=== PATIENT | male | born 1950 | race Caucasian/White ===

== ENCOUNTER 2017-06-22 20:38 | Emergency (ER) | payer MEDICARE, BC ==
[2017-06-22 23:54] LABS: Hematocrit 39 % (42-52); Mean Corpuscular HGB Conc 34 g/dl (31-36); Mean Corpuscular Hemoglobin 29 pg (27-31); Mean Corpuscular Volume 86 fL (80-94); Mean Platelet Volume 9 um3 (7.4-10.4); Red Blood Count 4.52 10^6/ul (4.0-5.4); Red Cell Distribution Width 14 % (10.5-15)
[2017-06-23 00:10] LABS: Albumin 4.2 g/dL (3.2-5.2); BUN/Creatinine Ratio 22.5 (8-20); Calcium 9.4 mg/dL (8.6-10.3); EGFR African American 125.2 (>60); EGFR Non-African American 97.3 (>60); Globulin 3.2 g/dL (2-4); Potassium 4.2 mmol/L (3.5-5.0); Total Bilirubin 0.5 mg/dL (0.2-1.0); Total Protein 7.4 g/dL (6.4-8.9)
--- NOTE | 2017-06-23 00:18 | ED ---
Leti Wetzel Alfonso, scribed for Leonid Pineda MD on 06/22/17 at 2320 . Shortness of Breath - HPI Summary HPI Summary: This patient is a 66 year old M presenting to [facility] accompanied by woman with a chief complaint of SOB at 1845 today. The SOB began in the shower. The CC has since resolved. Pt rates the pain 0/10 in severity. Symptoms aggravated by nothing and alleviated by spontaneous resolution. Pt reports wheezing, racing palpitations, high blood pressure (168/91 at home), chest tightness, and headache. Pt took ASA TILE TRIMMER. PSHx of endarterectomy on 06/15/17. - History of Current Complaint Chief Complaint: EDGeneral Time Seen by Provider: 06/22/17 23:08 Hx Obtained From: Patient Onset/Duration: Sudden Onset, Lasting Hours - 1845 today, Resolved Timing: Constant Current Severity: Moderate Aggrevating Factors: Nothing Alleviating Factors: Spontaneous Resolution Associated Signs & Symptoms: Wheezing, Chest Pain Unrelated to Cough - Tightness - Allergy/Home Medications Allergies/Adverse Reactions: Allergies Allergy/AdvReac Type Severity Reaction Status Date / Time No Known Allergies Allergy Verified 06/22/17 20:58 PMH/Surg Hx/FS Hx/Imm Hx Endocrine/Hematology History: Reports: Hx Diabetes Cardiovascular History: Reports: Hx Coronary Artery Disease - 02/2015 STENT, Hx Hypertension - ON DAILY MEDS Denies: Hx Pacemaker/ICD Comment Only: Other Cardiovascular Problems/Disorders - Dr Yan GI History: Reports: Hx Cirrhosis - STATES MANY YEARS AGO, , Hx Gastroesophageal Reflux Disease - ON DAILY MEDS, Hx Jaundice - History: Reports: Hx Kidney Stones - , PASSED Denies: Hx Renal Disease Musculoskeletal History: Reports: Hx Arthritis - GENERALIZED, DAILY PAIN, Other Musculoskeletal History - GOUT? Sensory History: Reports: Hx Contacts or Glasses - GLASSES Denies: Hx Hearing Aid Opthamlomology History: Reports: Hx Contacts or Glasses - GLASSES Psychiatric History: Reports: Hx Anxiety, Hx Depression Denies: Hx Panic Disorder - Surgical History Surgery Procedure, Year, and Place: 2006 LEFT knee [facility]. 2002 & 2010 LEFT SHOULDER [facility]. 2002 RT SHOULDER [facility]. 02/2015 RT CORONARY ARTERY STENT PLACED 03/06/15 OK TO SCAN IMMEDIATELY AFTER PLACEMENT TO 3T PER MR SAFETY(TAJ BY [employer]), [facility]. 1973 & 2004 LEFT ACHILLES TENDON [facility] [facility]. 2004 LEFT HAND [facility]. 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 Substance Use Type: Reports: None Smoking Status (MU): Former Smoker Type: Cigarettes Amount Used/How Often: 1 1/2-2 PPD 30+ YRS Have You Smoked in the Last Year: No Review of Systems Positive: Palpitations, Chest Pain - Tightness, Other - Positive "high blood pressure (168/91 at home) Positive: Shortness Of Breath, Other - Positive wheezing Positive: Headache All Other Systems Reviewed And Are Negative: Yes Physical Exam Triage Information Reviewed: Yes Vital Signs On Initial Exam: Initial Vitals Temp Pulse Resp BP Pulse Ox 97.0 F 84 16 116/80 97 06/22/17 20:50 06/22/17 20:50 06/22/17 20:50 06/22/17 20:50 06/22/17 20:50 Vital Signs Reviewed: Yes Appearance: Positive: Well-Appearing, No Pain Distress Skin: Positive: Warm Head/Face: Positive: Normal Head/Face Inspection Eyes: Positive: MARISSA ENT: Positive: Hearing grossly normal Neck: Positive: Supple Respiratory/Lung Sounds: Positive: Clear to Auscultation, Breath Sounds Present Cardiovascular: Positive: RRR Abdomen Description: Positive: Nontender, No Organomegaly, Soft Bowel Sounds: Positive: Present Musculoskeletal: Positive: Strength/ROM Intact Neurological: Positive: Alert, Oriented to Person Place, Time Psychiatric: Positive: Affect/Mood Appropriate Diagnostics - Vital Signs Vital Signs Temp Pulse Resp BP Pulse Ox 06/22/17 21:45 97.4 F 69 108/66 96 06/22/17 20:50 97.0 F 84 16 116/80 97 - Laboratory Lab Results: Lab Results 06/22/17 06/22/17 06/22/17 Range/Units 23:40 23:40 23:40 WBC 8.0 (3.5-10.8) 10^3/ul RBC 4.52 (4.0-5.4) 10^6/ul Hgb 13.0 L (14.0-18.0) g/dl Hct 39 L (42-52) % MCV 86 (80-94) fL MCH 29 (27-31) pg MCHC 34 (31-36) g/dl RDW 14 (10.5-15) % Plt Count 187 (150-450) 10^3/ul MPV 9 (7.4-10.4) um3 Neut % (Auto) 69.6 (38-83) % Lymph % (Auto) 21.2 L (25-47) % [place] % (Auto) 5.9 (1-9) % Eos % (Auto) 2.8 (0-6) % Baso % (Auto) 0.5 (0-2) % Absolute Neuts (auto) 5.6 (1.5-7.7) 10^3/ul Absolute Lymphs (auto) 1.7 (1.0-4.8) 10^3/ul Absolute Monos (auto) 0.5 (0-0.8) 10^3/ul Absolute Eos (auto) 0.2 (0-0.6) 10^3/ul Absolute Basos (auto) 0 (0-0.2) 10^3/ul Absolute Nucleated RBC 0 10^3/ul Nucleated RBC % 0 D-Dimer, Quantitative < 200 (Less Than 230) ng/mL Sodium 133 (133-145) mmol/L Potassium 4.2 (3.5-5.0) mmol/L Chloride 100 L (101-111) mmol/L Carbon Dioxide 27 (22-32) mmol/L Anion Gap 6 (2-11) mmol/L BUN 18 (6-24) mg/dL Creatinine 0.80 (0.67-1.17) mg/dL Est GFR ( Amer) 125.2 (>60) Est GFR (Non-Af Amer) 97.3 (>60) BUN/Creatinine Ratio 22.5 H (8-20) Glucose 182 H (70-100) mg/dL Calcium 9.4 (8.6-10.3) mg/dL Magnesium 2.0 (1.9-2.7) mg/dL Total Bilirubin 0.50 (0.2-1.0) mg/dL AST 19 (13-39) U/L ALT 41 (7-52) U/L Alkaline Phosphatase 91 (34-104) U/L Troponin I 0.00 (<0.04) ng/mL Total Protein 7.4 (6.4-8.9) g/dL Albumin 4.2 (3.2-5.2) g/dL Globulin 3.2 (2-4) g/dL Albumin/Globulin Ratio 1.3 (1-3) TSH Pending Result Diagrams: 06/22/17 23:40 06/22/17 23:40 Lab Statement: Any lab studies that have been ordered have been reviewed, and results considered in the medical decision making process. - EKG 2100 Cardiac Rate: NL - BPM 71 EKG Rhythm: Sinus Rhythm Re-Evaluation - Re-Evaluation First Eval Change: Improved - results d/w pt Course/Dx - Course Assessment/Plan: 66 year old M presenting to [facility] accompanied by woman with a chief complaint of SOB at 1845 today. Symptoms aggravated by nothing and alleviated by spontaneous resolution. Pt reports wheezing, racing palpitations, high blood pressure (168/91 at home), chest tightness, and headache. Pt took ASA TILE TRIMMER. PSHx of endarterectomy on 06/15/17. An EKG reveals NSR. Patient will be discharged with follow up from PCP. Pt is agreeable with this plan. - Diagnoses Provider Diagnoses: HTN (hypertension) Discharge - Discharge Plan Condition: Stable Disposition: HOME Patient Education Materials: Palpitations (ED) Referrals: Deion Rausch MD [Primary Care Provider] - 3 Days The documentation as recorded by the Leti caceres Alfonso accurately reflects the service I personally performed and the decisions made by me, Leonid Pineda MD.
[2017-06-23 00:39] LABS: TSH (Thyroid Stimulating Horm) 1.02 mcIU/mL (0.34-5.60)
[2017-06-23 01:20] VITALS: BP 143/64
== END 2017-06-23 01:20 | disposition home or self-care (01) ==
LOC: ED 20:38
DX: I10 Essential (primary) hypertension (principal); R07.9 Chest pain, unspecified; R05 Cough; R06.2 Wheezing; R00.2 Palpitations; R51 Headache; R06.02 Shortness of breath; Z87.891 Personal history of nicotine dependence
CPT/HCPCS: 36415; 80053; 83605; 83735; 84443; 84484; 85025; 85379; 93005; 99283

== ENCOUNTER → 2017-10-27 07:17 | Day surgery (SDC) | payer MEDICARE, BC ==
[~2017-10-27 07:17] MED LIST: Flumazenil* 0.1 MG/ML 5 ML MDV ONE; Heparin 2 UNITS/ML IVPREMIX* 1,000 ML IV ONE; Heparin 2 UNITS/ML IVPREMIX* 2,000 ML IV ONE; Heparin(*) 1000 UNIT/ML 10 ML VIAL CATH LAB IV ONE; Iodixanol* (CONTRAST) 320 MG/ML 100 ML SDV ONE; Iohexol 350 (CONTRAST) 200 ML MDV IV ONE; LORazepam TAB(*) 1 MG ONE; Lidocaine 1% INJ* 10 MG/ML 30 ML SDV ONE; Midazolam* 1 MG/ML 5 ML VIAL (5 MG) ONE; Naloxone* 0.4 MG/ML 1 ML VIAL ONE; VERAPAMIL 2.5 MG/ML 4 ML VIAL ONE; ceFAZolin 1 GM* X ONE DOSE IVPB; fentaNYL* 50 MCG/ML 5 ML VIAL (250 MCG VIAL) ONE; nitroGLYCERIN DRIP* 25,000 MCG/250 ML BTL ONE
[2017-10-27 07:55] LABS: Hematocrit 37 % (42-52); Hemoglobin 12.3 g/dl (14.0-18.0); Mean Corpuscular HGB Conc 33 g/dl (31-36); Mean Corpuscular Hemoglobin 27 pg (27-31); Mean Corpuscular Volume 82 fL (80-94); Mean Platelet Volume 9 um3 (7.4-10.4); Red Blood Count 4.51 10^6/ul (4.0-5.4); Red Cell Distribution Width 15 % (10.5-15); White Blood Count 5.9 10^3/ul (3.5-10.8)
[2017-10-27 08:06] LABS: Calcium 9.7 mg/dL (8.6-10.3); EGFR African American 110.7 (>60); EGFR Non-African American 86.1 (>60); Potassium 3.9 mmol/L (3.5-5.0)
[2017-10-27 11:37] VITALS: BP 130/95
--- NOTE | 2017-10-27 13:41 | PN ---
Progress Note - Progress Note Date of Service: 10/27/17 SOAP: Subjective: No pain different than his usual lower extremity pain. No nausea. Ate lunch. Wants to go home. Objective: 59, 129/80, 95% (RA), 13 respiration NAD, AAO x 3 Right DPA access site is soft, non-tender, Small amount of dried blood, stable since sheath removal. Right foot neuromuscular intact grossly Assessment: 66 YOM s/p right dorsalis pedis arteriotomy access right leg arteriogram and attempted revascularization of occluded proximal right SFA (unsuccessful). Plan: 1. Outcome and plan to refer to Dr. Barbour was discussed with Benito and his Eliane. They intend to see Dr. Barbour to discuss surgical options. 2. Case discussed with Dr. Barbour over the telephone. 3. D/C Plavix.
--- NOTE | 2017-10-27 14:39 | RAD ---
CPT II Codes: 6045F Procedure(s) performed: 1. Diagnostic right lower extremity arteriogram from a right dorsalis pedis arteriotomy. 2. Attempted revascularization of the occluded proximal right superficial femoral artery without success. Date of service: October 2017 Indication for procedure: Claudication and rest pain Comparison: Previously attempted angiography dated September 22, 2017 and CTA aorta with runoff dated April 27, 2017 Contrast: 10 mL Visipaque 320 Fluoroscopy Time: 21.4 minutes Vessels Accessed: Percutaneous access was obtained with ultrasound guidance in the right dorsalis pedis artery in the retrograde direction towards the heart. Catheter arteriography, with the catheter tip located within the lumen of the following arteries, was performed at the right dorsalis pedis artery and right superficial femoral artery. Anesthesia: Conscious sedation with IV Fentanyl and Versed as well as local 1% lidocaine injected locally at the arteriotomy site. Conscious sedation time: Timeout: 25 hours Case end: 1048 hours Total conscious sedation time: 1 hour and 23 minutes Additional medications: * IV heparin 6000 Units to achieve a goal ACT of 250-300. * The patient received 1 mg of p.o. Ativan prior to the onset of the procedure. * The "radial cocktail" was injected into the side arm of the arteriotomy sheath including heparin 3000 units, verapamil 3 mg and nitroglycerin 300 mcg PROCEDURE NOTE AND INTRAPROCEDURAL IMAGING FINDINGS: Immediately prior to the procedure the patient signed consent after thoroughly discussing all risks, benefits and alternative therapies. The patient was positioned on the fluoroscopy table in the supine position and the bilateral groins and right ankle were prepped and the patient was draped in standard sterile fashion. The right dorsalis pedis artery was located and visualize with ultrasound. Patency was confirmed with color flow analysis. Utilizing sonographic guidance the right dorsalis pedis artery was cannulated with a 21-gauge needle and a microwire was smoothly inserted under sonographic control into the lower anterior tibial artery. Images were saved. No buckling of the wire was visualized to indicate dissection. With the wire securing percutaneous arterial access, the needle was removed and a 4-Sudanese Terumo Glidesheath was advanced under fluoroscopic control into the right dorsalis pedis artery in the retrograde direction securing access. Under fluoroscopic visualization a microwire was advanced to the proximal right superficial femoral artery encountering the patient's calcified occlusion of the proximal right superficial femoral artery. Over the wire a catheter was advanced to the occlusion. The wire was removed and arteriography was performed to best characterize the occluded artery. This arteriogram was necessary to determine the location of a distal "cap" to try to access for revascularization. Multiple revascularization attempts were unsuccessful utilizing several microwires as well as standard 0.035 inch wires and hydrophilic wires. A dissection plane was created but safe reentry into the right common femoral artery could not be achieved. After multiple attempts over the course of an hour, and knowing that antegrade revascularization had failed earlier, the revascularization was aborted. At the conclusion of the case the ACT measured 150, the 4-Sudanese access sheath was removed and gentle manual pressure was held for 15 minutes. There were no signs of bleeding at the percutaneous arterial access site and the site was dressed with sterile gauze and Tegaderm. The patient tolerated the procedure well and was transferred to angiography holding bay for standard post pedal access procedural observation. SUMMARY OF PROCEDURE, IMAGING FINDINGS AND INTERVENTIONS PERFORMED: 1. Diagnostic studies performed: * Arterial access was obtained at the right dorsalis pedis artery in the retrograde direction (i.e. towards the heart) with ultrasound guidance. A sonographic image was recorded. * Diagnostic catheter angiography (necessary to attempt to revascularize the occluded right superficial femoral artery from a retrograde approach) was performed with the catheter tip in the right dorsalis pedis artery and right superficial femoral artery. * Catheter arteriography was performed of the right superficial femoral artery. 2. Interpretation of diagnostic studies performed: * Coarsely calcified occlusion of the proximal right superficial femoral artery. * Attempts to revascularize the occluded right superficial femoral artery from a retrograde pedal access approach were unsuccessful. 3. Surgical interventions performed: * Attempts to revascularize the occluded right superficial femoral artery from a retrograde pedal access approach were unsuccessful. Plan: 1. The patient was instructed to stop Plavix 75 mg p.o. daily. 2. Shortly after the procedure this case was discussed with Dr. Barbour with him the patient will see in consultation regarding surgical bypass.
== END | disposition home or self-care (01) ==
LOC: CHICATH 07:17
PROVIDERS: ATTEND Radiology Diagnostic Radiology
DX: I70.221 Atherosclerosis of native arteries of extremities with rest pain, right leg (principal); I10 Essential (primary) hypertension; I25.10 Atherosclerotic heart disease of native coronary artery without angina pectoris; I25.2 Old myocardial infarction; K21.9 Gastro-esophageal reflux disease without esophagitis; Z95.5 Presence of coronary angioplasty implant and graft; E11.9 Type 2 diabetes mellitus without complications; Z79.84 Long term (current) use of oral hypoglycemic drugs; E78.5 Hyperlipidemia, unspecified; I25.9 Chronic ischemic heart disease, unspecified; I42.5 Other restrictive cardiomyopathy; N28.9 Disorder of kidney and ureter, unspecified; F41.8 Other specified anxiety disorders; Z79.899 Other long term (current) drug therapy
CPT/HCPCS: 36415; 76937; 80048; 85025; 85610; 85730; 99156; 99157; A9270-GY; C1769; C1887; J0690; J1644; J2250; J2310; J3010

== ENCOUNTER 2018-04-24 16:51 | Emergency (ER) | payer MEDICARE, BC ==
--- OUTSIDE RECORDS SUMMARY | 2018-04-24 17:14 | XMS REPORT ---
:1950 External Reference #:[id number] Author Organization [employer] Address [address] [address] Phone [phone] Care Team Providers Name Role Phone Deion Rausch III, MD Primary Care Physician Unavailable Payers Type Date Identification Numbers Payment Provider Subscriber Medicare Primary Policy Number: [id number] Medicare [place]ito [place] PayID: [id number] [address] [place] [address] Medigap Part B Effective: 2017 Policy Number: JOSE Thong [place] [id number] PayID: [id number] [address] [address] [place] [address] Medigap Part B Effective: 2011 Policy Number: BS Thong [place] [id number] Expires: 2017 PayID: [id number] [address] [address] [place] [address] Workers Compensation Onset: 2011 Policy Number: State Insurance [place]ito [place] [id number] Fund Group Number: [id number] [address] [address] PayID: [place] [address] Advance Directives Type Date Description Status Comment Other Directive 10/20/2017 Health Care Proxy Current and Verified Problems Date Description Provider Status Onset: 03/25/2015 Chronic ischemic heart disease Shade Yan M.D., FAC, Active [facility] Onset: 03/25/2015 Restrictive cardiomyopathy Shade Yan M.D., FACC, Active secondary to granulomas [facility] Onset: 03/25/2015 Benign essential hypertension Shade Yan M.D., [facility], Active [facility] Onset: 03/25/2015 Hyperlipidemia Shade Yan M.D., [facility], Active [facility] Onset: 03/25/2015 Impaired renal function disorder Shade Yan M.D., [facility], Active [facility] Onset: 06/18/2015 Localized, primary osteoarthritis Kanwal Ceja M.D. Active of the pelvic region and thigh Onset: 06/18/2015 Osteoarthritis of knee Kanwal Ceja M.D. Active Onset: 06/25/2015 Gouty arthropathy Liseth Willoughby M.D. Active Onset: 06/25/2015 Lesion of ulnar nerve Liseth Willoughby M.D. Active Onset: 07/15/2015 Localized, primary osteoarthritis Kanwal Ceja M.D. Active of the shoulder region Onset: 07/15/2015 Disorder of bursa of shoulder Kanwal Ceja M.D. Active region Onset: 09/14/2015 Localized, primary osteoarthritis Kanwal Ceja M.D. 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 Active Onset: 08/30/2017 Atherosclerosis of arteries of [place] Gonzalez M.D. 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 Stopped with [facility] admission February 2015 Smoking Patient is a former smoker quit age 54; max 1-2 ppd. Started age 24 Recreational Drug Use Denies Drug Use Daily Caffeine Consumes on average 1 cup of regular coffee per day Exercise Type/Frequency Exercises rarely pt has pain in legs and ball of foot that prevent exercise Allergies, Adverse Reactions, Alerts Date Description Reaction Status Severity Comments 03/20/2015 NKDA active Medications Medication Date Status Form Strength Qnty SIG Indications Ordering Provider Tizanidine HCL 01/16 Active Capsules 4mg 1 tablet 5 Deion E. /2017 times daily Viraj Rausch Betamethasone 12/01 Active Cream 0.05% 90gm apply thin R21 Jose Dipropionate layer to CELI Franco affected areas twice daily. Clopidogrel 08/30 Active Tablets 75mg 180ta 75 mg by I70.221 Bal[place]ero Ordaz Bisulfate /2016 bs mouth daily, Viraj Gonzalez Vitamin B1 07/19 Active Tablets 100mg 90tab 1 by mouth Graham s every day Viraj Bailey Allopurinol 03/13 Active Tablets 100mg 90tab 1 by mouth Deion Ordonez /2016 s every day Viraj Rausch Colcrys 03/02 Active Tablets 0.6mg 6tabs 2 by mouth M79.644 Deion Ordonez with acute lalita Rausch flareViraj then 1 tab 1 hour later Pantoprazole 09/30 Active Tablets 20mg 90tab 1 by mouth Deion Ordonez Sodium DR [place] every day Virja Rausch Escitalopram 09/29 Active Tablets 10mg 90tab 1 by mouth Deion Ordonez Oxalate s every day Viraj Rausch Freestyle 28G 05/24 Active 100un Use as Deion Ordonez Lancets its Directed Miracle, Daily And as M.D. Needed Lisinopril 11/04 Active Tablets 5mg 90tab 1 by mouth I10 Deion Ordonez /2014 s every day Viraj Rausch Percocet 10/14 Active Tablets 5-325mg 56tab 1-2 by mouth Leonid s every 6 Jc, ADVERTISING ACCOUNT MANAGER hours as needed pain Cialis 08/17 Active Tablets 20mg 18tab take one Graham s tablet by Lynn mouth once M.DTc daily as needed for e.d. Nitrostat 06/18 Active Tablets 0.4mg 25tab place 1 Deion Tc Sub s tablet under Miracle, the tongue M.D. every 5 minutes for up to 3 doses Metoprolol 06/18 Active Tablets 25mg 45tab / by mouth Deion Ordonez Succinate ER 24HR s at bedtime Viraj Rausch Ra Aspirin Ec 04/10 Active Tablets 81mg 90tab take [address] s tablet once ravi Rausch M.Hola Freestyle 04/06 Active 1unit use as E11.9 Deion Ordonez [place] Lite s directed Miracle, Meter M.DTc Freestyle Lite 04/06 Active Strip 100un Use as E11.9 Deion Ordonez Test its Directed Miracle, Every Day M.D. And as Needed Freestyle 04/03 Active Misc 100un use once E11.9 Deion Ordonez Lanc its daily and as Miracle, needed M.DTc Gabapentin 03/20 Active Capsules 400mg 450ca take 1 Tc ps capsule by jelly Rausch up to M.D. 5 times a day Lipitor Active Tablets 20mg 90tab one tab by Shade /0000 s mouth every [place], night at M.D., bedtime ARIEL LOVE Folic Acid Active Tablets 1mg 90tab 1 by mouth Deion E. / s every day Viraj Rausch Multi-Vitamin Active Tablets 90tab 1 by mouth Deion ETc Daily /0000 s daily Viraj Rausch Probiotic Active Capsules 1 by mouth Unknown /0000 every day Tramadol HCL Active Tablets 50mg 1 tablet by Unknown /0000 mouth every bid as needed pain Metformin HCL 07/19 Hx Tablets 500mg 120ta 1 by mouth E11.9 Deion Ordonez bs twice a day Nadia Rausch M.D. 11/28 Cilostazol 06/01 Hx Tablets 100mg 30tab 1 by mouth Jose s every day CELI Franco - 04/20 Tizanidine HCL 04/18 Hx Capsules 6mg one by mouth Deion Ordonez 4 times a Miracle - day(pt takes M.DTc 01/16 4 mg 4 times /2018 daily) Prednisone 03/02 Hx Tablets 20mg 10tab 2 by mouth M79.644 Deion Ordonez s every day Miracle, - for 3 days, M.D. 06/06 then day for 4 days Clopidogrel 11/04 Hx Tablets 75mg 90tab 1 by mouth Shade Bright s every day Nadia Yan M.D., 06/01 [facility] Valium 10/14 Hx Tablets 5mg 21tab 1 by mouth Leonid s three times Jc, ADVERTISING ACCOUNT MANAGER - a day 05/03 [place] 09/14 Hx Tablets 5-325mg 30tab one tab by Liseth s mouth every Willoughby, - 4-6 hours as M.D. 10/04 needed pain [place] 08/27 Hx Tablets 5-325mg 30tab 1-2 by mouth Liseth s q4-6 hour as Willoughby, - needed pain M.D. 09/16 Tizanidine HCL 06/19 Hx Tablets 4mg 60tab 1 tab by Deion Ordonez /2014 s mouth four Miracle, - times a day M.D. 04/18 as needed Tramadol HCL 05/12 Hx Tablets 50mg 60tab 1/2 tablets Deion Ordonez s every 6 Miracle, - hours as M.D. 04/20 needed MDD Glyburide 03/25 Hx Tablets 1.25mg 180ta not taking 588.9 Nadia Dougherty M.D., 11/03 [facility] Quinapril-Hydroc 03/20 Hx Tablets 20mg/12.5 1/2 by Deion Ordonez hlorothiazide mg mouth every Miracle, - day M.D. 04/02 Zanaflex 03/20 Hx Capsules 4mg 60cap 1 tab by Deion Ordonez s mouth four Miracle, - times a day M.D. 06/19 as needed Thiamine HCL 03/20 Hx Tablets 100mg 90tab one po qd Graham tarsha Bailey, - M.D. 08/29 Aspirin 00 Hx Tablets 81mg 1 by mouth Unknown /0000 every day - 04/10 Spironolactone 00/00 Hx Tablets 25mg 1 by mouth Unknown /0000 every day - 03/20 Glucovance 00/00 Hx Tablets 1.25-250m 1 by mouth Unknown /0000 g twice a day - 04/02 Accuretic 00/ Hx take 1 tab Unknown /0000 daily - 03/20 Cialis 00/ Hx Tablets 20mg 1 daily and Unknown /0000 as needed - 04/14 Tramadol HCL Hx Tablets 50mg 1- tablets Unknown /0000 every 6 - hours as 05/12 Furosemide Hx Tablets 20mg 1 tab by Unknown /0000 mouth every - day 04/05 Thiamine Hx Capsules 50mg 2 by mouth Unknown /0000 every day - 03/20 Nitroglycerin Hx Solution 5mg/ml as directed Unknown / - 03/24 Lactulose Hx Solution 10GM/15ML 473un start 15 Deion E. /0000 its milliliters Nadia Rausch by jelly Cali 06/02 qday. march gradually increase by 15 ml/day once per week to a max of 30 milliliters twice a day Oxycodone-Acetam Hx Tablets 5-325mg 30tab 1 po 1-4 Leonid inophen /0000 s times a day CELI Jc - as needed 10/04 Indomethacin 00/ Hx Capsules 50mg 1 by mouth Unknown /0000 three times - a day 04/14 Indomethacin 00/00 Hx Capsules 50mg 1 by mouth Unknown /0000 tid prn - gout(patient 06/17 finished a treatment) Cialis 00/00 Hx As needed Unknown /0000 - 09/16 Plavix 00/00 Hx Tablets 75mg 30tab 1 by mouth Deion ETc /0000 s every day Nadia Rausch M.D. 11/04 Protonix 00/00 Hx Tablets 40mg 30tab 1 by mouth Deion ETc /0000 DR s every day Nadia Rausch M.D. 12/28 Bupropion HCL ER 00/00 Hx Tablets 150mg 60tab 1 by mouth Deion Ordonez (SR) /0000 ER 12HR s twice a day Nadia Rausch M.D. 09/29 Pantoprazole 00/00 Hx Solution 40mg 1 by mouth Deion Anderson /0000 Rec every day Nadia Rausch M.D. 09/30 Aspirin Adult Hx Tablets 81mg 1 by mouth Unknown Low Dose /0000 DR every day - 07/19 Cephalexin Hx Capsules 500mg 1 by mouth Unknown /0000 four times a - day for 10 Medications Administered in Office Medication Date Status Form Strength Qnty SIG Indications Ordering Provider Depomedrol Administered Injection Kanwal 80MG Mercedes Ceja M.D. Influenza Administered Injection Unknown Virus Vaccine 015 Depomedrol Administered Injection Kanwal 80MG 015 Viraj Ceja Depomedrol Administered Injection Kanwal 80MG 015 Viraj Ceja Influenza Administered Injection Unknown Virus Vaccine 014 Immunizations CPT Code Status Date Vaccine Lot # [id number] Given 08/10/2017 Influenza Virus Vaccine, Quadrivalent, Split, 572kt Preservative Free [id number] Given 07/15/2016 Influenza Virus Vaccine, Quadrivalent, Split, Preservative Free [id number] Given 08/18/2015 Flu Vaccine NOS [id number] Given 08/18/2015 Pneumococcal Conjugate Vaccine 13 Valent For Intramuscular Use 95395 Given 06/02/2015 Pneumonia Vaccine [id number] Given 08/20/2014 Zoster (Zostavax) 07837 Given 11/20/2008 Tetanus And Diptheria (Td) For Adult Use Preservative Free Vital Signs Date Vital Result Comment 04/20/2018 Height 70 inches 5'10" Weight 228.00 lb Heart Rate 87 /min BP Systolic Sitting 142 mmHg BP Diastolic Sitting 68 mmHg Pain Level 6 O2 % BldC Oximetry 95 % BMI (Body Mass Index) 32.7 kg/m2 01/18/2018 Weight 220.00 lb Heart Rate 56 /min BP Systolic Sitting 114 mmHg BP Diastolic Sitting 68 mmHg O2 % BldC Oximetry 99 % 01/16/2018 Height 70 inches 5'10" Weight 219.00 lb w/shoes Heart Rate 68 /min BP Systolic Sitting 112 mmHg lue large cuff BP Diastolic Sitting 68 mmHg lue large cuff BP Systolic Standing 112 mmHg lue large cuff BP Diastolic Standing 68 mmHg lue large cuff Respiratory Rate 18 /min BMI (Body Mass Index) 31.4 kg/m2 Ejection Fraction 55-60% echo 04/30/15 12/01/2017 Height 70 inches 5'10" Weight 216.50 lb Heart Rate 63 /min BP Systolic 110 mmHg BP Diastolic 62 mmHg Body Temperature 97.6 F O2 % BldC Oximetry 97 % BMI (Body Mass Index) 31.1 kg/m2 11/30/2017 Height 70.5 inches 5'10.50" Weight 212.00 lb w/shoes Heart Rate 78 /min BP Systolic Sitting 130 mmHg lue reg cuff BP Diastolic Sitting 78 mmHg lue reg cuff BP Systolic Standing 122 mmHg lue reg cuff BP Diastolic Standing 72 mmHg lue reg cuff BP Systolic Lying Down 128 mmHg lue reg cuff, after home machine. BP Diastolic Lying Down 82 mmHg lue reg cuff, after home machine. BP Systolic Recheck 125 mmHg HR 66 with home machine BP Diastolic Recheck 75 mmHg HR 66 with home machine Respiratory Rate 18 /min BMI (Body Mass Index) 30.0 kg/m2 Ejection Fraction 55-60% echo 04/30/15 10/20/2017 Height 70.5 inches 5'10.50" Weight 218.00 lb Heart Rate 57 /min BP Systolic Sitting 95 mmHg BP Diastolic Sitting 74 mmHg Body Temperature 96.7 F O2 % BldC Oximetry 98 % BMI (Body Mass Index) 30.8 kg/m2 08/30/2017 Height 70.5 inches Weight 219.00 lb w/shoes Heart Rate 64 /min BP Systolic Sitting 120 mmHg rue reg cuff BP Diastolic Sitting 60 mmHg rue reg cuff Respiratory Rate 18 /min BMI (Body Mass Index) 31.0 kg/m2 Ejection Fraction 55-60% echo 04/30/15 08/10/2017 Weight 220.00 lb Heart Rate 73 /min BP Systolic Sitting 120 mmHg BP Diastolic Sitting 64 mmHg Body Temperature 97.0 F Pain Level 4 O2 % BldC Oximetry 97 % 07/19/2017 Weight 224.38 lb Heart Rate 82 /min BP Systolic Sitting 160 mmHg BP Diastolic Sitting 80 mmHg Body Temperature 98.5 F O2 % BldC Oximetry 95 % 06/01/2017 Weight 228.00 lb Heart Rate 66 /min BP Systolic Sitting 128 mmHg BP Diastolic Sitting 66 mmHg Body Temperature 97.1 F O2 % BldC Oximetry 93 % 05/03/2017 Height 70.5 inches 5'10.50" Weight 227.00 lb w/ shoes Heart Rate 60 /min reg BP Systolic Sitting 130 mmHg Rue, reg cuff BP Diastolic Sitting 80 mmHg Rue, reg cuff BP Systolic Standing 118 mmHg BP Diastolic Standing 80 mmHg Respiratory Rate 16 /min BMI (Body Mass Index) 32.1 kg/m2 Ejection Fraction 55-60% as of 04/2015 echo 04/18/2017 Weight 224.00 lb Heart Rate 64 /min BP Systolic Sitting 132 mmHg BP Diastolic Sitting 84 mmHg Respiratory Rate 15 /min Body Temperature 98.0 F O2 % BldC Oximetry 98 % 03/02/2017 Weight 229.00 lb Heart Rate 52 /min BP Systolic Sitting 128 mmHg BP Diastolic Sitting 82 mmHg Respiratory Rate 14 /min Body Temperature 98.4 F O2 % BldC Oximetry 98 % 10/17/2016 Height 70 inches 5'10" Weight 227.38 lb Heart Rate 53 /min BP Systolic 120 mmHg 117/78 pt's machine BP Diastolic 70 mmHg 117/78 pt's machine Body Temperature 97.7 F O2 % BldC Oximetry 95 % BMI (Body Mass Index) 32.6 kg/m2 09/29/2016 Height 70 inches 5'10" Weight 221.00 lb Heart Rate 65 /min BP Systolic Sitting 186 mmHg BP Diastolic Sitting 86 mmHg Body Temperature 98.6 F O2 % BldC Oximetry 97 % BMI (Body Mass Index) 31.7 kg/m2 05/04/2016 Height 70 inches 5'10" Weight 215.00 lb Heart Rate 64 /min 68 BP Systolic Sitting 128 mmHg right arm, reg cuff BP Diastolic Sitting 72 mmHg right arm, reg cuff BP Systolic Standing 112 mmHg right arm, reg cuff BP Diastolic Standing 70 mmHg right arm, reg cuff Respiratory Rate 16 /min BMI (Body Mass Index) 30.8 kg/m2 Ejection Fraction 55-60% 04/30/15 03/28/2016 Weight 215.00 lb Heart Rate 72 /min BP Systolic Sitting 118 mmHg BP Diastolic Sitting 74 mmHg Body Temperature 98.4 F O2 % BldC Oximetry 97 % 12/28/2015 Weight 212.00 lb Heart Rate 66 /min BP Systolic Sitting 142 mmHg BP Diastolic Sitting 70 mmHg O2 % BldC Oximetry 98 % 11/25/2015 Height 70 inches 5'10" Weight 216.00 lb Pain Level 8 BMI (Body Mass Index) 31.0 kg/m2 11/17/2015 Heart Rate 64 /min 66 BP Systolic Sitting 142 mmHg left arm, reg cuff BP Diastolic Sitting 72 mmHg left arm, reg cuff BP Systolic Standing 116 mmHg left arm, reg cuff BP Diastolic Standing 66 mmHg left arm, reg cuff Respiratory Rate 16 /min 11/04/2015 Height 70 inches 5'10" Weight 215.00 lb Heart Rate 64 /min 66 BP Systolic Sitting 160 mmHg right arm, reg cuff BP Diastolic Sitting 90 mmHg right arm, reg cuff BP Systolic Standing 148 mmHg right arm, reg cuff BP Diastolic Standing 90 mmHg right arm, reg cuff Respiratory Rate 16 /min BMI (Body Mass Index) 30.8 kg/m2 Ejection Fraction 55-60% 04/30/15 10/29/2015 Height 70 inches 5'10" Weight 216.00 lb Pain Level 2 BMI (Body Mass Index) 31.0 kg/m2 10/14/2015 Height 70 inches 5'10" Weight 216.00 lb Heart Rate 78 /min BP Systolic 160 mmHg BP Diastolic 90 mmHg Pain Level 98 BMI (Body Mass Index) 31.0 kg/m2 10/05/2015 Height 70 inches 5'10" Weight 216.00 lb Pain Level 2 BMI (Body Mass Index) 31.0 kg/m2 09/29/2015 Height 70 inches 5'10" Weight 216.00 lb Heart Rate 59 /min BP Systolic 151 mmHg BP Diastolic 77 mmHg BMI (Body Mass Index) 31.0 kg/m2 09/16/2015 Height 70.5 inches 5'10.50" Weight 217.00 lb Heart Rate 68 /min BP Systolic 160 mmHg BP Diastolic 70 mmHg Body Temperature 98.3 F O2 % BldC Oximetry 98 % BMI (Body Mass Index) 30.7 kg/m2 09/14/2015 Height 70.5 inches 5'10.50" Weight 215.00 lb Body Temperature 98.0 F Pain Level 4 BMI (Body Mass Index) 30.4 kg/m2 08/27/2015 Height 70.5 inches 5'10.50" Weight 215.00 lb Heart Rate 59 /min BP Systolic Sitting 156 mmHg BP Diastolic Sitting 82 mmHg Pain Level 6 BMI (Body Mass Index) 30.4 kg/m2 07/15/2015 Height 70.5 inches 5'10.50" Weight 215.00 lb Pain Level 4 BMI (Body Mass Index) 30.4 kg/m2 06/25/2015 Height 70.5 inches 5'10.50" Heart Rate 66 /min BP Systolic 185 mmHg BP Diastolic 85 mmHg 06/18/2015 Height 70.5 inches 5'10.50" Weight 215.00 lb Heart Rate 73 /min BP Systolic 186 mmHg BP Diastolic 88 mmHg Pain Level 4 BMI (Body Mass Index) 30.4 kg/m2 06/02/2015 Weight 215.00 lb Heart Rate 67 /min BP Systolic Sitting 128 mmHg BP Diastolic Sitting 72 mmHg Body Temperature 98.6 F O2 % BldC Oximetry 97 % 05/07/2015 Height 70.5 inches 5'10.50" Weight 215.00 lb Heart Rate 58 /min 62 BP Systolic Sitting 100 mmHg right arm, reg cuff BP Diastolic Sitting 60 mmHg right arm, reg cuff BP Systolic Standing 96 mmHg right arm, reg cuff BP Diastolic Standing 58 mmHg right arm, reg cuff Respiratory Rate 20 /min BMI (Body Mass Index) 30.4 kg/m2 Ejection Fraction 55-60% 04/30/15 04/22/2015 Heart Rate 62 /min 80 BP Systolic 147 mmHg Home BP cuff, Left arm BP Diastolic 86 mmHg Home BP cuff, Left arm BP Systolic Sitting 112 mmHg left arm, reg cuff BP Diastolic Sitting 68 mmHg left arm, reg cuff BP Systolic Standing 92 mmHg left arm, reg cuff BP Diastolic Standing 64 mmHg left arm, reg cuff Respiratory Rate 20 /min 04/15/2015 Heart Rate 66 /min 76 BP Systolic Sitting 134 mmHg left arm, reg cuff BP Diastolic Sitting 70 mmHg left arm, reg cuff BP Systolic Standing 118 mmHg left arm, reg cuff BP Diastolic Standing 70 mmHg left arm, reg cuff Respiratory Rate 20 /min 04/15/2015 Weight 222.25 lb Heart Rate 97 /min BP Systolic Sitting 118 mmHg BP Diastolic Sitting 68 mmHg Body Temperature 97.5 F O2 % BldC Oximetry 97 % 04/07/2015 Height 70.5 inches 5'10.50" Weight 220.75 lb Heart Rate 67 /min BP Systolic Sitting 128 mmHg BP Diastolic Sitting 74 mmHg Pain Level 9 O2 % BldC Oximetry 94 % BMI (Body Mass Index) 31.2 kg/m2 04/06/2015 Height 70.5 inches 5'10.50" Weight 221.00 lb Heart Rate 60 /min 66 BP Systolic Sitting 100 mmHg right arm, reg cuff BP Diastolic Sitting 70 mmHg right arm, reg cuff BP Systolic Standing 88 mmHg right arm, reg cuff BP Diastolic Standing 62 mmHg right arm, reg cuff Respiratory Rate 16 /min BMI (Body Mass Index) 31.3 kg/m2 Ejection Fraction 30-35% 03/06/15 04/02/2015 Weight 222.00 lb Heart Rate 58 /min BP Systolic Sitting 106 mmHg BP Diastolic Sitting 64 mmHg Body Temperature 97.4 F O2 % BldC Oximetry 98 % 03/25/2015 Height 70.5 inches 5'10.50" Weight 221.00 lb Heart Rate 54 /min 56 BP Systolic Sitting 92 mmHg right arm, reg cuff BP Diastolic Sitting 64 mmHg right arm, reg cuff BP Systolic Standing 86 mmHg right arm, reg cuff BP Diastolic Standing 64 mmHg right arm, reg cuff Respiratory Rate 16 /min BMI (Body Mass Index) 31.3 kg/m2 Ejection Fraction 30-35% 03/06/15 03/20/2015 Weight 203.00 lb Heart Rate 52 /min BP Systolic Sitting 75 mmHg BP Diastolic Sitting 47 mmHg Results Test Date Test Result H/L Range Note Laboratory test finding 01/18/2018 Hemoglobin A1c 6.8 5-7 Platelet Count 12/15/2017 Platelet Count 187 10^3/uL 150-450 1 Mean Platelet Volume 9 um3 7.4-10.4 1 CBC Auto Diff 12/14/2017 Platelet Count (SEE NOTE) 10^3/uL 150-450 2 White Blood Count 7.8 10^3/uL 3.5-10.8 Red Blood Count 4.90 10^6/uL 4.0-5.4 Hemoglobin 13.3 g/dL Low 14.0-18.0 Hematocrit 40 % Low 42-52 Mean Corpuscular Volume 82 fL 80-94 Mean Corpuscular Hemoglobin 27 pg 27-31 Mean Corpuscular HGB Conc 33 g/dL 31-36 Red Cell Distribution Width 14 % 10.5-15 Mean Platelet Volume 9 um3 7.4-10.4 Abs Neutrophils 4.8 10^3/uL 1.5-7.7 Abs Lymphocytes 1.6 10^3/uL 1.0-4.8 Abs Monocytes 0.5 10^3/uL 0-0.8 Abs Eosinophils 0.2 10^3/uL 0-0.6 Abs Basophils 0 10^3/uL 0-0.2 Abs Nucleated RBC 0 10^3/uL Granulocyte % 67.1 % 38-83 Lymphocyte % 23.0 % Low 25-47 Monocyte % 6.5 % 1-9 Eosinophil % 2.9 % 0-6 Basophil % 0.5 % 0-2 Nucleated Red Blood Cells % 0.4 Basic Metabolic Panel 12/14/2017 Sodium 138 mmol/L 133-145 Potassium 4.4 mmol/L 3.5-5.0 Chloride 103 mmol/L 101-111 Co2 Carbon Dioxide 29 mmol/L 22-32 Anion Gap 6 mmol/L 2-11 Glucose 135 mg/dL High 70-100 Blood Urea Nitrogen 16 mg/dL 6-24 Creatinine 0.87 mg/dL 0.67-1.17 BUN/Creatinine Ratio 18.4 8-20 Calcium 10.0 mg/dL 8.6-10.3 Egfr Non- 88.1 >60 Egfr 113.3 >60 3 Inr/Protime 12/14/2017 Inr 0.94 0.77-1.02 Basic Metabolic Panel 10/27/2017 Sodium 138 mmol/L 133-145 4 Potassium 3.9 mmol/L 3.5-5.0 4 Chloride 105 mmol/L 101-111 4 Co2 Carbon Dioxide 26 mmol/L 22-32 4 Anion Gap 7 mmol/L 2-11 4 Glucose 163 mg/dL High 70-100 4 Blood Urea Nitrogen 16 mg/dL 6-24 4 Creatinine 0.89 mg/dL 0.67-1.17 4 BUN/Creatinine Ratio 18.0 8-20 4 Calcium 9.7 mg/dL 8.6-10.3 4 Egfr Non- 86.1 >60 4 Egfr 110.7 >60 4, 5 Inr/Protime 10/27/2017 Inr 0.95 0.77-1.02 4, 6 Laboratory test finding 10/27/2017 Partial Thrombo Time 33.3 seconds 26.0 -36.3 4, 7 PTT CBC Auto Diff 10/27/2017 White Blood Count 5.9 10^3/uL 3.5-10.8 4 Red Blood Count 4.51 10^6/uL 4.0-5.4 4 Hemoglobin 12.3 g/dL Low 14.0-18.0 4 Hematocrit 37 % Low 42-52 4 Mean Corpuscular Volume 82 fL 80-94 4 Mean Corpuscular Hemoglobin 27 pg 27-31 4 Mean Corpuscular HGB Conc 33 g/dL 31-36 4 Red Cell Distribution Width 15 % 10.5-15 4 Platelet Count 222 10^3/uL 150-450 4 Mean Platelet Volume 9 um3 7.4-10.4 4 Abs Neutrophils 3.4 10^3/uL 1.5-7.7 4 Abs Lymphocytes 1.9 10^3/uL 1.0-4.8 4 Abs Monocytes 0.4 10^3/uL 0-0.8 4 Abs Eosinophils 0.2 10^3/uL 0-0.6 4 Abs Basophils 0 10^3/uL 0-0.2 4 Abs Nucleated RBC 0 10^3/uL 4 Granulocyte % 57.7 % 38-83 4 Lymphocyte % 31.8 % 25-47 4 Monocyte % 6.4 % 1-9 4 Eosinophil % 3.4 % 0-6 4 Basophil % 0.7 % 0-2 4 Nucleated Red Blood Cells % 0.1 4 Urine Microalbumin Random 10/20/2017 Ur Microalbumin (mg/L) 11.3 mg/L Urine Creatinine 241.74 mg/dL Urine Microalbumin/Creatinine TNP ug/mg <31 8 Laboratory test finding 10/20/2017 Hemoglobin A1c 6.3 5-7 CBC Auto Diff 09/22/2017 White Blood Count 6.7 10^3/uL 3.5-10.8 Red Blood Count 4.47 10^6/uL 4.0-5.4 Hemoglobin 12.3 g/dL Low 14.0-18.0 Hematocrit 36 % Low 42-52 Mean Corpuscular Volume 80 fL 80-94 Mean Corpuscular Hemoglobin 27 pg 27-31 Mean Corpuscular HGB Conc 34 g/dL 31-36 Red Cell Distribution Width 15 % 10.5-15 Platelet Count 186 10^3/uL 150-450 Mean Platelet Volume 9 um3 7.4-10.4 Abs Neutrophils 3.6 10^3/uL 1.5-7.7 Abs Lymphocytes 2.3 10^3/uL 1.0-4.8 Abs Monocytes 0.6 10^3/uL 0-0.8 Abs Eosinophils 0.2 10^3/uL 0-0.6 Abs Basophils 0.1 10^3/uL 0-0.2 Abs Nucleated RBC 0 10^3/uL Granulocyte % 53.4 % 38-83 Lymphocyte % 34.5 % 25-47 Monocyte % 8.3 % 1-9 Eosinophil % 3.0 % 0-6 Basophil % 0.8 % 0-2 Nucleated Red Blood Cells % 0.1 Basic Metabolic Panel 09/19/2017 Sodium 136 mmol/L 133-145 Potassium 4.1 mmol/L 3.5-5.0 Chloride 101 mmol/L 101-111 Co2 Carbon Dioxide 28 mmol/L 22-32 Anion Gap 7 mmol/L 2-11 Glucose 106 mg/dL High 70-100 Blood Urea Nitrogen 17 mg/dL 6-24 Creatinine 0.87 mg/dL 0.67-1.17 BUN/Creatinine Ratio 19.5 8-20 Calcium 10.3 mg/dL 8.6-10.3 Egfr Non- 88.3 >60 Egfr 113.6 >60 9 Basic Metabolic Panel 08/22/2017 Sodium 137 mmol/L 133-145 Potassium 4.7 mmol/L 3.5-5.0 Chloride 103 mmol/L 101-111 Co2 Carbon Dioxide 28 mmol/L 22-32 Anion Gap 6 mmol/L 2-11 Glucose 92 mg/dL 70-100 Blood Urea Nitrogen 14 mg/dL 6-24 Creatinine 0.85 mg/dL 0.67-1.17 BUN/Creatinine Ratio 16.5 8-20 Calcium 9.8 mg/dL 8.6-10.3 Egfr Non- 90.7 >60 Egfr 116.7 >60 10 Laboratory test finding 07/19/2017 Hemoglobin A1c 7.0 5-7 CBC Auto Diff 06/22/2017 White Blood Count 8.0 10^3/uL 3.5-10.8 Red Blood Count 4.52 10^6/uL 4.0-5.4 Hemoglobin 13.0 g/dL Low 14.0-18.0 Hematocrit 39 % Low 42-52 Mean Corpuscular Volume 86 fL 80-94 Mean Corpuscular Hemoglobin 29 pg 27-31 Mean Corpuscular HGB Conc 34 g/dL 31-36 Red Cell Distribution Width 14 % 10.5-15 Platelet Count 187 10^3/uL 150-450 Mean Platelet Volume 9 um3 7.4-10.4 Abs Neutrophils 5.6 10^3/uL 1.5-7.7 Abs Lymphocytes 1.7 10^3/uL 1.0-4.8 Abs Monocytes 0.5 10^3/uL 0-0.8 Abs Eosinophils 0.2 10^3/uL 0-0.6 Abs Basophils 0 10^3/uL 0-0.2 Abs Nucleated RBC 0 10^3/uL Granulocyte % 69.6 % 38-83 Lymphocyte % 21.2 % Low 25-47 Monocyte % 5.9 % 1-9 Eosinophil % 2.8 % 0-6 Basophil % 0.5 % 0-2 Nucleated Red Blood Cells % 0 Comp Metabolic Panel 06/22/2017 Sodium 133 mmol/L 133-145 Potassium 4.2 mmol/L 3.5-5.0 Chloride 100 mmol/L Low 101-111 Co2 Carbon Dioxide 27 mmol/L 22-32 Anion Gap 6 mmol/L 2-11 Glucose 182 mg/dL High 70-100 Blood Urea Nitrogen 18 mg/dL 6-24 Creatinine 0.80 mg/dL 0.67-1.17 BUN/Creatinine Ratio 22.5 High 8-20 Calcium 9.4 mg/dL 8.6-10.3 Total Protein 7.4 g/dL 6.4-8.9 Albumin 4.2 g/dL 3.2-5.2 Globulin 3.2 g/dL 2-4 Albumin/Globulin Ratio 1.3 1-3 Total Bilirubin 0.50 mg/dL 0.2-1.0 Alkaline Phosphatase 91 U/L 34-104 Alt 41 U/L 7-52 Ast 19 U/L 13-39 Egfr Non- 97.3 >60 Egfr 125.2 >60 11 Laboratory test finding 06/22/2017 Magnesium 2.0 mg/dL 1.9-2.7 Troponin-I (TnI) 0.00 ng/mL <0.04 TSH (Thyroid Stim Horm) 1.02 mcIU/mL 0.34-5.60 D Dimer Quantitative < 200 ng/mL Less Than 230 12 Lactic Acid 0.9 mmol/L 0.5-2.0 13 Inr/Protime 06/13/2017 Inr 0.94 0.89-1.11 Laboratory test finding 06/13/2017 Partial Thrombo 32.9 seconds 26.0- 36.3 Time PTT Laboratory test finding 06/08/2017 Partial Thrombo <pending> Time PTT Laboratory test finding 05/08/2017 Alt 34 U/L 7-52 14 Ast (Sgot) 29 U/L 13-39 15 Lipid Profile (Trig/Chol/HDL) 05/08/2017 Triglycerides 160 mg/dL 16 Cholesterol 145 mg/dL 17 HDL Cholesterol 40.3 mg/dL 18 LDL Cholesterol 73 mg/dL 19 Basic Metabolic Panel 04/26/2017 Sodium 137 mmol/L 133-145 Potassium 4.2 mmol/L 3.5-5.0 Chloride 103 mmol/L 101-111 Co2 Carbon Dioxide 26 mmol/L 22-32 Anion Gap 8 mmol/L 2-11 Glucose 134 mg/dL High 70-100 Blood Urea Nitrogen 19 mg/dL 6-24 Creatinine 0.74 mg/dL 0.67-1.17 BUN/Creatinine Ratio 25.7 High 8-20 Calcium 9.8 mg/dL 8.6-10.3 Egfr Non- 106.5 >60 Egfr 136.9 >60 20 Laboratory test finding 04/26/2017 Uric Acid 6.0 mg/dL 4.4-7.6 Laboratory test finding 04/18/2017 Hemoglobin A1c 7.1 High 5-7 Laboratory test finding 03/02/2017 Uric Acid 7.5 mg/dL 4.4-7.6 Basic Metabolic Panel 03/02/2017 Sodium 136 mmol/L 133-145 Potassium 4.8 mmol/L 3.5-5.0 Chloride 101 mmol/L 101-111 Co2 Carbon Dioxide 27 mmol/L 22-32 Anion Gap 8 mmol/L 2-11 Glucose 117 mg/dL High 70-100 Blood Urea Nitrogen 15 mg/dL 6-24 Creatinine 0.74 mg/dL 0.67-1.17 BUN/Creatinine Ratio 20.3 High 8-20 Calcium 9.7 mg/dL 8.6-10.3 Egfr Non- 106.5 >60 Egfr 136.9 >60 21 Laboratory test finding 09/29/2016 Hemoglobin A1c 6.6 5-7 Laboratory test finding 05/02/2016 Hepatitis C Antibody Nonreactive Nonreactive Lipid Profile 05/02/2016 Triglycerides 83 mg/dL 22 (Trig/Chol/HDL) Cholesterol 112 mg/dL 23 HDL Cholesterol 33.6 mg/dL 24 LDL Cholesterol 62 mg/dL 25 Urine Microalbumin Random 05/02/2016 Ur Microalbumin (mg/L) < 5.0 mg/L Urine Creatinine 58.50 mg/dL Urine Microalbumin/Creatinine TNP ug/mg <31 26 Comp Metabolic Panel 05/02/2016 Sodium 135 mmol/L 133-145 Potassium 4.4 mmol/L 3.5-5.0 Chloride 101 mmol/L 101-111 Co2 Carbon Dioxide 27 mmol/L 22-32 Anion Gap 7 mmol/L 2-11 Glucose 111 mg/dL High 70-100 Blood Urea Nitrogen 20 mg/dL 6-24 Creatinine 0.87 mg/dL 0.67-1.17 BUN/Creatinine Ratio 23.0 High 8-20 Calcium 9.5 mg/dL 8.6-10.3 Total Protein 7.2 g/dL 6.4-8.9 Albumin 4.5 g/dL 3.2-5.2 Globulin 2.7 g/dL 2-4 Albumin/Globulin Ratio 1.7 1-3 Total Bilirubin 0.90 mg/dL 0.2-1.0 Alkaline Phosphatase 86 U/L 34-104 Alt 34 U/L 7-52 Ast 27 U/L 13-39 Egfr Non- 88.6 >60 Egfr 114.0 >60 27 Laboratory test finding 03/28/2016 Hemoglobin A1c 5.9 5-7 Basic Metabolic Panel 11/17/2015 Sodium 136 mmol/L 133-145 Potassium 4.2 mmol/L 3.5-5.0 Chloride 101 mmol/L 101-111 Co2 Carbon Dioxide 28 mmol/L 22-32 Anion Gap 7 mmol/L 2-11 Glucose 138 mg/dL High 70-100 Blood Urea Nitrogen 16 mg/dL 6-24 Creatinine 0.94 mg/dL 0.67-1.17 BUN/Creatinine Ratio 17.0 8-20 Calcium 9.6 mg/dL 8.6-10.3 Egfr Non- 81.1 >60 Egfr 104.2 >60 28 Laboratory test finding 09/16/2015 Hemoglobin A1c 5.8 5-7 Laboratory test finding 09/01/2015 Point of Care Glucose 127 mg/dL High 74 -106 29 Laboratory test finding 09/01/2015 Point of Care Glucose 119 mg/dL High 74 -106 30 Laboratory test finding 06/03/2015 C Reactive Protein 4.11 mg/L < 5.00 31 Erythrocyte Sed Rate 50 mm/Hr High 0-20 Rheumatoid Factor <15 IU/mL <15 32 Laboratory test finding 06/02/2015 Hemoglobin A1c 5.7 5-7 Lipid Profile (Trig/Chol/HDL) 05/05/2015 Triglycerides 137 mg/dL 33 Cholesterol 127 mg/dL 34 HDL Cholesterol 32.5 mg/dL 35 LDL Cholesterol 67 mg/dL 36 Laboratory test finding 05/05/2015 Alt (SGPT) 34 U/L 7-52 Ast (Sgot) 35 U/L 13-39 Creatine Kinase(CK) 27 U/L 10-223 Laboratory test finding 04/14/2015 Erythrocyte Sed Rate 86 mm/Hr High 0- 20 C Reactive Protein 11.52 mg/L High < 5.00 37 CBC Auto Diff 04/14/2015 White Blood Count 6.6 10^3/uL 4.8-10.8 Red Blood Count 3.82 10^6/uL Low 4.0-5.4 Hemoglobin 11.9 g/dL Low 14.0-18.0 Hematocrit 35 % Low 42-52 Mean Corpuscular Volume 93 fL 80-94 Mean Corpuscular Hemoglobin 31 pg 27-31 Mean Corpuscular HGB Conc 34 g/dL 31-36 Red Cell Distribution Width 14 % 10.5-15 Platelet Count 209 10^3/uL 150-450 Mean Platelet Volume 10 um3 7.4-10.4 Abs Neutrophils 4.5 10^3/uL 1.5-7.7 Abs Lymphocytes 1.5 10^3/uL 1.0-4.8 Abs Monocytes 0.4 10^3/uL 0-0.8 Abs Eosinophils 0.2 10^3/uL 0-0.6 Abs Basophils 0 10^3/uL 0-0.2 Abs Nucleated RBC 0 10^3/uL Granulocyte % 67.7 % 38-83 Lymphocyte % 22.3 % Low 25-47 Monocyte % 6.6 % 1-9 Eosinophil % 2.7 % 0-6 Basophil % 0.7 % 0-2 Nucleated Red Blood Cells % 0.1 Basic Metabolic Panel 04/06/2015 Sodium 138 mmol/L 133-145 Potassium 4.5 mmol/L 3.5-5.0 Chloride 104 mmol/L 101-111 Co2 Carbon Dioxide 25 mmol/L 22-32 Anion Gap 9 mmol/L 2-11 Glucose 184 mg/dL High 70-100 Blood Urea Nitrogen 11 mg/dL 6-24 Creatinine 1.22 mg/dL High 0.67-1.17 BUN/Creatinine Ratio 9.0 8-20 Calcium 9.9 mg/dL 8.6-10.3 Egfr Non- 60.2 >60 Egfr 77.4 >60 38 Laboratory test finding 04/06/2015 B-Type Natriuretic 220 pg/mL High 39 Peptide BNP Basic Metabolic Panel 03/26/2015 Sodium 135 mmol/L 133-145 Potassium 5.0 mmol/L 3.5-5.0 Chloride 101 mmol/L 101-111 Co2 Carbon Dioxide 27 mmol/L 22-32 Anion Gap 7 mmol/L 2-11 Glucose 171 mg/dL High 70-100 Blood Urea Nitrogen 24 mg/dL 6-24 Creatinine 1.29 mg/dL High 0.67-1.17 BUN/Creatinine Ratio 18.6 8-20 Calcium 9.7 mg/dL 8.6-10.3 Egfr Non- 56.4 >60 Egfr 72.6 >60 40 Laboratory test finding 03/24/2015 Inr 1.04 0.78-1.07 Ammonia 33 mol/L 16-53 Comp Metabolic Panel 03/24/2015 Sodium 134 mmol/L 133-145 Potassium 4.6 mmol/L 3.5-5.0 Chloride 100 mmol/L Low 101-111 Co2 Carbon Dioxide 26 mmol/L 22-32 Anion Gap 8 mmol/L 2-11 Glucose 141 mg/dL High 70-100 Blood Urea Nitrogen 28 mg/dL High 6-24 Creatinine 1.58 mg/dL High 0.67-1.17 BUN/Creatinine Ratio 17.7 8-20 Calcium 9.7 mg/dL 8.6-10.3 Total Protein 7.1 g/dL 6.4-8.9 Albumin 4.1 g/dL 3.2-5.2 Globulin 3.0 g/dL 2-4 Albumin/Globulin Ratio 1.4 1-3 Total Bilirubin 0.90 mg/dL 0.2-1.0 Alkaline Phosphatase 89 U/L 34-104 Alt 60 U/L High 7-52 Ast 59 U/L High 13-39 Egfr Non- 44.7 >60 Egfr 57.4 >60 41 Urine Microalbumin Random 03/24/2015 Ur Microalbumin (mg/L) 11.0 mg/L Urine Creatinine 170.64 mg/dL Urine Microalbumin/Creatinine 6.4 ug/mg <31 1 REDRAW NO VENIPUNCTURE CHARGE 2 Unable to perform accurate count. 3 Because ethnic data is not always readily available, this report includes an eGFR for both -Americans and non- Americans. The National Kidney Disease Education Program (NKDEP) does not endorse the use of the MDRD equation for patients that are not between the ages of 18 and 70, are , have extremes of body size, muscle mass, or nutritional status, or are non- or non-. According to the National Kidney Foundation, irrespective of diagnosis, the stage of the disease is based on the level of kidney function: Stage Description GFR(mL/min/1.73 m(2)) 1 Kidney damage with normal or decreased GFR 90 2 Kidney damage with mild decrease in GFR 60-89 3 Moderate decrease in GFR 30-59 4 Severe decrease in GFR 15-29 5 Kidney failure <15 (or dialysis) 4 CALL RESULTS [id number] IF CRITICAL 5 Because ethnic data is not always readily available, this report includes an eGFR for both -Americans and non- Americans. The National Kidney Disease Education Program (NKDEP) does not endorse the use of the MDRD equation for patients that are not between the ages of 18 and 70, are , have extremes of body size, muscle mass, or nutritional status, or are non- or non-. According to the National Kidney Foundation, irrespective of diagnosis, the stage of the disease is based on the level of kidney function: Stage Description GFR(mL/min/1.73 m(2)) 1 Kidney damage with normal or decreased GFR 90 2 Kidney damage with mild decrease in GFR 60-89 3 Moderate decrease in GFR 30-59 4 Severe decrease in GFR 15-29 5 Kidney failure <15 (or dialysis) 6 Please note the change in INR reference range effective 17. 7 CALL RESULTS X4591 IF CRITICAL 8 Unable to calculate due to low microalbumin 9 Because ethnic data is not always readily available, this report includes an eGFR for both -Americans and non- Americans. The National Kidney Disease Education Program (NKDEP) does not endorse the use of the MDRD equation for patients that are not between the ages of 18 and 70, are , have extremes of body size, muscle mass, or nutritional status, or are non- or non-. According to the National Kidney Foundation, irrespective of diagnosis, the stage of the disease is based on the level of kidney function: Stage Description GFR(mL/min/1.73 m(2)) 1 Kidney damage with normal or decreased GFR 90 2 Kidney damage with mild decrease in GFR 60-89 3 Moderate decrease in GFR 30-59 4 Severe decrease in GFR 15-29 5 Kidney failure <15 (or dialysis) 10 Because ethnic data is not always readily available, this report includes an eGFR for both -Americans and non- Americans. The National Kidney Disease Education Program (NKDEP) does not endorse the use of the MDRD equation for patients that are not between the ages of 18 and 70, are , have extremes of body size, muscle mass, or nutritional status, or are non- or non-. According to the National Kidney Foundation, irrespective of diagnosis, the stage of the disease is based on the level of kidney function: Stage Description GFR(mL/min/1.73 m(2)) 1 Kidney damage with normal or decreased GFR 90 2 Kidney damage with mild decrease in GFR 60-89 3 Moderate decrease in GFR 30-59 4 Severe decrease in GFR 15-29 5 Kidney failure <15 (or dialysis) 11 Because ethnic data is not always readily available, this report includes an eGFR for both -Americans and non- Americans. The National Kidney Disease Education Program (NKDEP) does not endorse the use of the MDRD equation for patients that are not between the ages of 18 and 70, are , have extremes of body size, muscle mass, or nutritional status, or are non- or non-. According to the National Kidney Foundation, irrespective of diagnosis, the stage of the disease is based on the level of kidney function: Stage Description GFR(mL/min/1.73 m(2)) 1 Kidney damage with normal or decreased GFR 90 2 Kidney damage with mild decrease in GFR 60-89 3 Moderate decrease in GFR 30-59 4 Severe decrease in GFR 15-29 5 Kidney failure <15 (or dialysis) 12 Please note: The following may produce a false positive D Dimer test: - Rheumatoid factor greater than 60 IU/ml - Plasma hemoglobin greater than 0.05 gm/dl - Bilirubin greater than 50 mg/dl - Lipids greater than 1000 mg/dl - FDP greater than 20 ug/ml 13 [facility] Severe Sepsis and Septic Shock Management Bundle Measure requires all lactic acids initially measuring >2.0 mmol/L be repeated. [address] Deion Rausch [address] Deion Rausch 16 Desirable <150 Borderline high 150-199 High 200-499 Very High >500 17 Desirable <200 Borderline high 200-239 High >239 18 Low <40 Desirable: 40-60 High: >60 19 Desirable: <100 mg/dL Near Optimal: 100-129 mg/dL Borderline High: 130-159 mg/dL High: 160-189 mg/dL Very High: >189 mg/dL 20 Because ethnic data is not always readily available, this report includes an eGFR for both -Americans and non- Americans. The National Kidney Disease Education Program (NKDEP) does not endorse the use of the MDRD equation for patients that are not between the ages of 18 and 70, are , have extremes of body size, muscle mass, or nutritional status, or are non- or non-. According to the National Kidney Foundation, irrespective of diagnosis, the stage of the disease is based on the level of kidney function: Stage Description GFR(mL/min/1.73 m(2)) 1 Kidney damage with normal or decreased GFR 90 2 Kidney damage with mild decrease in GFR 60-89 3 Moderate decrease in GFR 30-59 4 Severe decrease in GFR 15-29 5 Kidney failure <15 (or dialysis) 21 Because ethnic data is not always readily available, this report includes an eGFR for both -Americans and non- Americans. The National Kidney Disease Education Program (NKDEP) does not endorse the use of the MDRD equation for patients that are not between the ages of 18 and 70, are , have extremes of body size, muscle mass, or nutritional status, or are non- or non-. According to the National Kidney Foundation, irrespective of diagnosis, the stage of the disease is based on the level of kidney function: Stage Description GFR(mL/min/1.73 m(2)) 1 Kidney damage with normal or decreased GFR 90 2 Kidney damage with mild decrease in GFR 60-89 3 Moderate decrease in GFR 30-59 4 Severe decrease in GFR 15-29 5 Kidney failure <15 (or dialysis) 22 Desirable <150 Borderline high 150-199 High 200-499 Very High >500 23 Desirable <200 Borderline high 200-239 High >239 24 Low <40 Desirable: 40-60 High: >60 25 Desirable: <100 mg/dL Near Optimal: 100-129 mg/dL Borderline High: 130-159 mg/dL High: 160-189 mg/dL Very High: >189 mg/dL 26 Unable to calculate due to low microalbumin 27 Because ethnic data is not always readily available, this report includes an eGFR for both -Americans and non- Americans. The National Kidney Disease Education Program (NKDEP) does not endorse the use of the MDRD equation for patients that are not between the ages of 18 and 70, are , have extremes of body size, muscle mass, or nutritional status, or are non- or non-. According to the National Kidney Foundation, irrespective of diagnosis, the stage of the disease is based on the level of kidney function: Stage Description GFR(mL/min/1.73 m(2)) 1 Kidney damage with normal or decreased GFR 90 2 Kidney damage with mild decrease in GFR 60-89 3 Moderate decrease in GFR 30-59 4 Severe decrease in GFR 15-29 5 Kidney failure <15 (or dialysis) 28 Because ethnic data is not always readily available, this report includes an eGFR for both -Americans and non- Americans. The National Kidney Disease Education Program (NKDEP) does not endorse the use of the MDRD equation for patients that are not between the ages of 18 and 70, are , have extremes of body size, muscle mass, or nutritional status, or are non- or non-. According to the National Kidney Foundation, irrespective of diagnosis, the stage of the disease is based on the level of kidney function: Stage Description GFR(mL/min/1.73 m(2)) 1 Kidney damage with normal or decreased GFR 90 2 Kidney damage with mild decrease in GFR 60-89 3 Moderate decrease in GFR 30-59 4 Severe decrease in GFR 15-29 5 Kidney failure <15 (or dialysis) 29 Casting House Worker: [id number] JAIME MONTES DE OCA 30 Casting House Worker: [id number] AARON TRIPATHI 31 Acute inflammation: >10.00 32 Test Performed by: [place] [address] Program Management Specialist: Carlos Pittman II, M.D., Ph.D. 33 Desirable <150 Borderline high 150-199 High 200-499 Very High >500 34 Desirable <200 Borderline high 200-239 High >239 35 Low <40 Desirable: 40-60 High: >60 36 Desirable: <100 mg/dL Near Optimal: 100-129 mg/dL Borderline High: 130-159 mg/dL High: 160-189 mg/dL Very High: >189 mg/dL 37 Acute inflammation: >10.00 38 Because ethnic data is not always readily available, this report includes an eGFR for both -Americans and non- Americans. The National Kidney Disease Education Program (NKDEP) does not endorse the use of the MDRD equation for patients that are not between the ages of 18 and 70, are , have extremes of body size, muscle mass, or nutritional status, or are non- or non-. According to the National Kidney Foundation, irrespective of diagnosis, the stage of the disease is based on the level of kidney function: Stage Description GFR(mL/min/1.73 m(2)) 1 Kidney damage with normal or decreased GFR 90 2 Kidney damage with mild decrease in GFR 60-89 3 Moderate decrease in GFR 30-59 4 Severe decrease in GFR 15-29 5 Kidney failure <15 (or dialysis) 39 >100 to <200 pg/mL: likely compensated congestive heart failure (CHF) 200 to 400 pg/mL: likely moderate CHF >400 pg/mL: likely moderate to severe CHF 40 Because ethnic data is not always readily available, this report includes an eGFR for both -Americans and non- Americans. The National Kidney Disease Education Program (NKDEP) does not endorse the use of the MDRD equation for patients that are not between the ages of 18 and 70, are , have extremes of body size, muscle mass, or nutritional status, or are non- or non-. According to the National Kidney Foundation, irrespective of diagnosis, the stage of the disease is based on the level of kidney function: Stage Description GFR(mL/min/1.73 m(2)) 1 Kidney damage with normal or decreased GFR 90 2 Kidney damage with mild decrease in GFR 60-89 3 Moderate decrease in GFR 30-59 4 Severe decrease in GFR 15-29 5 Kidney failure <15 (or dialysis) 41 Because ethnic data is not always readily available, this report includes an eGFR for both -Americans and non- Americans. The National Kidney Disease Education Program (NKDEP) does not endorse the use of the MDRD equation for patients that are not between the ages of 18 and 70, are , have extremes of body size, muscle mass, or nutritional status, or are non- or non-. According to the National Kidney Foundation, irrespective of diagnosis, the stage of the disease is based on the level of kidney function: Stage Description GFR(mL/min/1.73 m(2)) 1 Kidney damage with normal or decreased GFR 90 2 Kidney damage with mild decrease in GFR 60-89 3 Moderate decrease in GFR 30-59 4 Severe decrease in GFR 15-29 5 Kidney failure <15 (or dialysis) Procedures Date CPT Code Description Status 12/12/2017 55787 Treadmill Interp/Report Only Completed 12/12/2017 64895 Stress Test Supervsn W/Out I/R Completed 11/30/2017 67689 EKG Tracing & Interpretation Completed 10/27/2017 72764 Moderate Sedation Services; Same Phys Intl 15 Mins; PT Completed >=5 Years 10/27/2017 12997 Ultrasound Guidance For Vascular Access Completed 10/27/2017 82402 Csnnn-Jlkoabdwv-Efykjzllok Completed 10/27/2017 68466 Introduce Needle/Intracatheter Extremity Artery Completed 09/22/2017 01379 Common Femoral, Bilat Completed 09/22/2017 93998 Angio Extremity, Bilateral Completed 09/22/2017 65305 Ultrasound Guidance For Vascular Access Completed 09/22/2017 23903 Moderate Sedation Services; Same Phys Intl 15 Mins; PT Completed >=5 Years 05/03/2017 46440 EKG Tracing & Interpretation Completed 05/04/2016 70645 EKG Tracing & Interpretation Completed 11/04/2015 06640 EKG Tracing & Interpretation Completed 09/14/201517609 Inject/Drain Joint/Bursa Major Completed 09/01/2015 43600 Neuroplasty &/Or Transposition; Ulnar Nerve AT Completed Elbow 09/01/2015 40543 Neuroplasty &/Or Transposition; Ulnar Nerve AT Completed Elbow 07/15/201558532 Inject/Drain Joint/Bursa Major Completed 06/18/201538620 Inject/Drain Joint/Bursa Major Completed 04/30/2015 73475 ECHO Transthorasic Realtime 2D W Doppler & Color Completed Flow Hosp 03/25/2015 05803 EKG Tracing & Interpretation Completed 03/17/2015 50735 Left Heart Cath. Incl S/I Coronaries, Angio S/I V Gram Completed If Done 03/09/2015 69491 EEG Recording Awake & Drowsy Completed 03/08/2015 06045 EKG, Interpretation Only Completed 03/07/2015 02973 EKG, Interpretation Only Completed 03/06/2015 19004 EKG, Interpretation Only Completed 03/06/2015 36521 ECHO Transthorasic Realtime 2D W Doppler & Color Completed Flow Hosp 03/06/2015 79123 Echocardiogram, Limited Study Completed 03/06/2015 97648 EEG Recording Awake & Asleep Completed 03/05/2015 67794 Left Heart Cath. Incl S/I Coronaries, Angio S/I V Gram Completed If Done 03/05/2015 83090 EKG, Interpretation Only Completed 03/05/2015 50799 Revascularization Acute Total/Subtotal Occlusion Completed 03/04/2015 72447 EKG, Interpretation Only Completed 03/03/2015 57475 EKG, Interpretation Only Completed 03/02/2015 54212 ECHO Transthorasic Realtime 2D W Doppler & Color Completed Flow Hosp 03/02/2015 36895 EKG, Interpretation Only Completed 02/26/2015 Colonoscopy Completed Encounters Type Date Location Provider CPT E/M Dx Office Visit 01/18/2018 2:20p [facility] Deion Rausch, 80827 E11.8 - Swapnil Cali I25.10 I10 E78.5 Office Visit 01/16/2018 2:40p [facility] M.D., 58196 I25.10 [facility] AT [facility], [facility] I10 E78.5 Office Visit 12/01/2017 2:20p [facility] Internal Medicine - Jose Franco, CELI 65152 Z01.818 [place] I70.201 I10 E78.5 I25.10 E11.8 R21 Office Visit 11/30/2017 2:00p [facility] M.D., 76125 Z01.810 [facility] AT [facility], [facility] I10 I25.10 I70.201 Office Visit 10/20/2017 11:00a [facility] Medicine Deion Rausch, 66858 E11.9 - Swapnil Cali I10 Office Visit 08/30/2017 3:30p [facility] Baldomero Gonzalez, 69375 I70.221 Of Luis Cali Office Visit 08/10/2017 2:00p [facility] Internal Medicine Deion Rausch, 15629 M25.571 - Swapnil Cali I73.9 Z23 Office Visit 07/19/2017 3:40p [facility] Medicine Deion Rausch, 73168 E11.9 - Swapnil Cali R49.0 Office Visit 06/01/2017 2:00p [facility] [place] [address] Z01.818 [place] I65.29 I10 E78.5 I25.10 E11.9 Office Visit 05/03/2017 2:40p [facility] Sh[place] Yan M.D., 87350 I10 AT [facility], [facility] E78.5 Z01.810 I25.10 I73.9 R22.1 Office Visit 04/18/2017 2:00p [facility] Medicine Deion Rausch, 97453 Z01.810 - Swapnil Cali E11.9 I25.9 I10 E78.5 Office Visit 03/02/2017 2:20p [facility] Medicine Deion Rausch, 15737 M79.644 - Swapnil Cali Office Visit 10/17/2016 2:20p [facility] Medicine Deion Rausch, 12726 I10 - Swapnil Cali Office Visit 09/29/2016 3:00p [facility] Medicine Deion Rausch, 40357 Z00.00 - Swapnil Cali I10 I25.9 E78.5 F32.9 Z00.01 E11.8 E11.9 Office Visit 05/04/2016 3:40p [facility] Sh[place] Yan M.D., 03391 I10 AT [facility] I25.9 E78.5 I25.10 Office Visit 03/28/2016 2:40p [facility] Deion Rausch, 13474 E11.9 - Leo Cali I10 Z72.0 I25.9 E78.5 Z11.59 Office Visit 12/28/2015 3:00p [facility] Deion Rausch, 42965 E11.9 - Leo Cali Office Visit 11/25/2015 2:00p [facility], 28730 M21.6x2 Deepika.Lou Cali M21.6x1 Office Visit 11/17/2015 2:45p [facility] [place] [address] I10 AT [facility] Office Visit 11/04/2015 2:40p [facility] Shade Yan M.D., 32215 I25.9 AT [facility] [facility] E78.5 I10 Office Visit 10/14/2015 2:40p [facility] Deion Rausch, 51388 M54.5 - Leo Cali Office Visit 09/29/2015 2:10p [facility], 92062 M21.6x1 C.Lou Cali M21.6x2 M76.62 Office Visit 09/16/2015 2:20p [facility] Deion Rausch, 13727 E11.9 - Leo Cali M25.572 M25.571 Office Visit 08/27/2015 2:10p [facility] Liseth Willoughby, 08159 G56.21 Of Prabhakar Cali G56.22 Office Visit 07/15/2015 2:45p [facility] Kanwal Ceja M.D. 44946 715.11 C.MTcATc 726.10 715.31 726.2 Office Visit 06/25/2015 3:30p [facility]ough[facility], 14448 274.00 Of Prabhakar Cali 354.2 Office Visit 06/18/2015 1:00p [facility] Kanwal Ceja M.D. 65033 715.15 C.M.ATc 715.96 719.46 719.06 Office Visit 06/02/2015 2:40p [facility] Deion Rausch, 67286 250.00 - Leo Cali 401.1 726.19 719.46 724.2 V03.82 Office Visit 05/07/2015 1:00p [facility] Karly Yan M.D., 50833 401.1 [facility] AT [facility] 414.9 425.9 272.4 Office Visit 04/22/2015 3:40p [facility] [place] [address] 401.1 [facility] Office Visit 04/15/2015 2:00p [facility] - Deion Rausch, 16358 719.43 Leo Cali Office Visit 04/15/2015 3:30p [facility] [place] [address] 401.1 [facility] AT [facility] Office Visit 04/07/2015 4:00p [facility] - Deion Rausch, 74886 719.43 Leo Cali Office Visit 04/06/2015 11:00a [facility] Kraly Yan M.D., 13808 401.1 [facility] AT [facility] 414.9 425.9 272.4 Office Visit 04/02/2015 2:40p [facility] Deion Rausch, 30953 250.00 - Leo Cali 401.1 414.00 Office Visit 03/25/2015 11:40a [facility] Of Shade Yan M.D., 04585 414.9 [employer] AT [facility] 425.9 401.1 272.4 588.9 Office Visit 03/20/2015 11:00a [facility] Deion BlackwellTc Qureshiie, 39610 414.00 - Leo Cali 250.00 305.00 311 Office Visit 03/18/2015 3:54p [facility] Of Shade Yan M.D., 48405 786.50 [employer] AT [facility] 425.4 Office Visit 03/18/2015 10:30a [facility], Conchita Vergara, 56987 786.50 Hospitalists MChoco 414.00 250.00 Office Visit 03/17/2015 3:22p [facility] Of Shade Yan M.D., 24948 786.59 [employer] AT [facility] 790.99 414.9 Office Visit 03/16/2015 10:28a [facility] Rishi Hudson, 47860 786.50 Assoc,pc Hospitalists MChoco 414.00 412 250.00 Office Visit 03/10/2015 8:30a [facility],pc Massimo Duncan M.D. 76469 425.4 Hospitalists 410.70 780.97 305.00 Office Visit 03/09/2015 8:30a [facility], Massimo Duncan M.D. 37136 410.70 Hospitalists 425.4 780.97 305.00 Office Visit 03/09/2015 11:56a [facility] Yasmeen Bashir, 77359 348.30 M.DTc 794.02 Office Visit 03/08/2015 11:54a [facility] Yasmeen Bashir, 76149 348.30 M.DTc 790.6 794.09 794.02 Office Visit 03/08/2015 8:29a [facility]oc,pc Barbara Onofre, 10991 425.4 Hospitalists D.O. 410.70 780.97 305.00 Office Visit 03/07/2015 10:41a [facility] Todd London M.D. 35669 414.9 410.70 Office Visit 03/07/2015 11:49a [facility] Yasmeen Bashir, 48523 348.30 M.DTc 790.6 Office Visit 03/07/2015 8:29a [facility] Barbara Onofre, 85723 425.4 Hospitalists D.OTc 410.70 780.97 305.00 Office Visit 03/06/2015 10:53a [facility] Todd London M.D. 50767 414.9 425.9 Office Visit 03/06/2015 8:28a [facility] Barbara Onofre, 13057 425.4 Hospitalists D.OTc 410.70 780.97 305.00 Office Visit 03/05/2015 11:08a [facility] Todd London, 59630 410.70 MChoco 427.31 401.1 Office Visit 03/05/2015 11:38a [facility] Barbara Onofre, 42337 425.4 Hospitalists D.OTc 410.70 780.97 305.00 Office Visit 03/04/2015 11:38a [facility] Leonid Goff 52100 425.4 Assoc, Hospitalists Viraj 780.97 790.6 794.31 Office Visit 03/04/2015 2:01p [facility] Of Shade Yan M.D., 06614 425.4 [employer] AT [facility] 410.70 Office Visit 03/04/2015 11:29a [facility] Todd London M.D. 10560 425.4 427.31 410.70 Office Visit 03/03/2015 11:37a [facility],calvin Zuniga D.O. 00578 425.4 Hospitalists 790.6 780.97 794.31 Office Visit 03/02/2015 11:37a [facility],pc Antoni Zuniga D.O. 69436 425.4 Hospitalists 790.6 794.31 291.0 Office Visit 03/02/2015 2:27p [facility] Of Farshad Goddard, 39956 794.31 Luis Cali 425.4 428.0 Office Visit 03/01/2015 11:28a [facility],pc Antoni Zuniga D.O. 80817 794.31 Hospitalists 514 790.6 291.0 Office Visit 03/01/2015 3:00p [facility] Lakshmi Andrea, 29864 794.31 Viraj 790.99 414.9 428.0 Office Visit 03/28/2013 2:30p [facility] Liseth [facility]ough[facility], 10583 840.4 C.MGabe Cali 716.91 Office Visit 02/14/2013 3:15p [facility] Liseth Willoughby 12167 840.4 C.MGabe Cali 716.91 840.4 716.91 Plan of Care Future Appointment(s):05/02/2018 1:00 pm - Deion Rausch M.D. at [facility] - Tukdybcoe38/06/2018 3:20 pm - Deion Rausch M.D. at [facility] - Rfpaaidwh51/01/2018 - Deion Rausch M.D.L76.32 Postproc hematoma of skin, subcu following other [id number] Peripheral vascular disease, unspecified
[2018-04-24 18:00] LABS: ABS Basophils 0.1 10^3/ul (0-0.2); ABS Eosinophils 0.2 10^3/ul (0-0.6); ABS Lymphocytes 1.4 10^3/ul (1.0-4.8); ABS Monocytes 0.6 10^3/ul (0-0.8); ABS Neutrophils 5.3 10^3/ul (1.5-7.7); ABS Nucleated RBC 0 10^3/ul; Eosinophil % 2.2 % (0-6); Hematocrit 24 % (42-52); Hemoglobin 7.2 g/dl (14.0-18.0); Lymphocyte % 18.5 % (25-47); Mean Corpuscular HGB Conc 30 g/dl (31-36); Mean Corpuscular Hemoglobin 21 pg (27-31); Mean Corpuscular Volume 67 fL (80-94); Mean Platelet Volume 8.2 um3 (7.4-10.4); Nucleated Red Blood Cells % 0.1; Platelet Count 268 10^3/ul (150-450); Red Blood Count 3.51 10^6/ul (4.0-5.4); Red Cell Distribution Width 19 % (10.5-15); White Blood Count 7.6 10^3/ul (3.5-10.8)
[2018-04-24 18:05] LABS: INR 1.1 (0.77-1.02)
[2018-04-24 18:14] LABS: EGFR Non-African American 73.3 (>60)
--- NOTE | 2018-04-24 20:10 | RAD ---
Indication: Right leg pain. Real-time sonography of the right inguinal region was performed. No evidence of a pseudoaneurysm is identified. The right common femoral artery appears patent although atherosclerosis is identified. Complex fluid collection in the right abdomen measures 7.1 x 3.3 x 5.7 cm with no evidence of Doppler flow. This is consistent with resolving hematoma. IMPRESSION: No evidence of pseudoaneurysm arising from the common femoral artery is noted. Probable resolving hematoma in the right lower abdomen measuring 7.1 x 3.3 x 5.7 cm.
[2018-04-24 20:46] VITALS: BP 111/61
--- NOTE | 2018-04-26 11:50 | ED ---
Adrián Wetzel Angela, scribed for Deion Segundo MD on 04/24/18 at 1857 . GI/ HPI - HPI Summary HPI Summary: This pt is a 67 y/o male presenting to [facility] c/o right groin pain s/p recent vascular surgery 1 week ago. Pt reports he had a right femoral artery bypass at the end of November/early December 2017. He notes that he had another surgery to clean out the femoral artery on the left going in from the right groin on . Pt states that as the wire was being pulled out the pt didn't clot and they applied pressure. He then developed a hematoma on the entry site of the right groin. Since then pt has been having right groin pain. Additionally he reports right kidney pain, right testicle pain. He saw his PCP (Dr. Rausch) 4 days ago and his labs were abnormal, therefore he was sent to the ED. Pt notes he was found to have a cyst on his kidney. His vascular surgeon in Dr. Barbour at [facility]. - History of Current Complaint Chief Complaint: EDGeneral Time Seen by Provider: 04/24/18 18:21 Stated Complaint: ABNORMAL LABS Hx Obtained From: Patient Onset/Duration: Started Days Ago, Still Present Timing: Lasting Days Current Severity: Moderate Pain Intensity: 5 Location of Pain: Groin - right Associated Signs and Symptoms: Positive: Other: - right kidney pain, right testicular pain. Negative: Nausea, Vomiting, Fever, Chills, Abdominal Pain Aggravating Factor(s): Nothing Alleviating Factor(s): Nothing - Allergy/Home Medications Allergies/Adverse Reactions: Allergies Allergy/AdvReac Type Severity Reaction Status Date / Time No Known Allergies Allergy Verified 04/24/18 17:03 PMH/Surg Hx/FS Hx/Imm Hx Endocrine/Hematology History: Reports: Hx Diabetes Cardiovascular History: Reports: Hx Coronary Artery Disease - 02/2015 STENT, Hx Hypercholesterolemia, Hx Hypertension - ON DAILY MEDS, Other Cardiovascular Problems/Disorders - carotid endarterectomy Denies: Hx Angina, Hx Myocardial Infarction, Hx Pacemaker/ICD, Hx Valvular Heart Disease Respiratory History: Denies: Hx Asthma, Hx Chronic Obstructive Pulmonary Disease (COPD) GI History: Reports: Hx Cirrhosis - STATES MANY YEARS AGO, , Hx Gastroesophageal Reflux Disease - ON DAILY MEDS, Hx Jaundice - History: Reports: Hx Kidney Stones - , PASSED Denies: Hx Renal Disease Musculoskeletal History: Reports: Hx Arthritis - GENERALIZED, DAILY PAIN, Other Musculoskeletal History - GOUT Sensory History: Reports: Hx Contacts or Glasses - GLASSES Denies: Hx Hearing Aid Opthamlomology History: Reports: Hx Contacts or Glasses - GLASSES Psychiatric History: Reports: Hx Anxiety, Hx Depression Denies: Hx Panic Disorder - Surgical History Surgery Procedure, Year, and Place: 2006 LEFT knee [facility]. 2002 & 2010 LEFT SHOULDER [facility]. 2001 RT SHOULDER [facility]. 02/2015 RT CORONARY ARTERY STENT PLACED 03/06/15 OK TO SCAN IMMEDIATELY AFTER PLACEMENT TO 3T PER MR SAFETY(REBEL BY [employer]), [facility]. Femoral bypass 12/2017 [place]. 1973 & 2003 LEFT A[place]ILLES TENDON [place] [facility]. 2003 LEFT HAND [facility]. 2010 RT HAND [facility]. 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 GENERAL: Patient is a well-developed and nourished male who is lying comfortable in the stretcher. Patient is not in any acute respiratory distress. HEAD AND FACE: No signs of trauma. No ecchymosis, hematomas or skull depressions. No sinus tenderness. EYES: PERRLA, EOMI x 2, No injected conjunctiva, no nystagmus. EARS: Hearing grossly intact. Ear canals and tympanic membranes are within normal limits. MOUTH: Oropharynx within normal limits. NECK: Supple, trachea is midline, no adenopathy, no JVD, no carotid bruit, no c- spine tenderness, neck with full ROM. CHEST: Symmetric, no tenderness at palpation LUNGS: Clear to auscultation bilaterally. No wheezing or crackles. CVS: Regular rate and rhythm, S1 and S2 present, no murmurs or gallops appreciated. ABDOMEN: Soft, non-tender. No signs of distention. No rebound no guarding, and no masses palpated. Bowel sounds are normal. Pt has a prominent abdomen. : Tenderness on the right groin area. Good femoral pulses. EXTREMITIES: FROM in all major joints, no edema, no cyanosis or clubbing. NEURO: Alert and oriented x 3. No acute neurological deficits. Speech is normal and follows commands. SKIN: Dry and warm. Ecchymosis on the right pelvic area. Triage Information Reviewed: Yes Vital Signs On Initial Exam: Initial Vitals Temp Pulse Resp BP Pulse Ox 98 F 70 16 111/55 99 04/24/18 16:58 04/24/18 16:58 04/24/18 16:58 04/24/18 16:58 04/24/18 16:58 Vital Signs Reviewed: Yes Diagnostics - Vital Signs Vital Signs Temp Pulse Resp BP Pulse Ox 04/24/18 16:58 98 F 70 16 111/55 99 - Laboratory Lab Results: Lab Results 04/24/18 04/24/18 04/24/18 Range/Units 17:52 17:52 17:52 WBC 7.6 (3.5-10.8) 10^3/ul RBC 3.51 L (4.0-5.4) 10^6/ul Hgb 7.2 L (14.0-18.0) g/dl Hct 24 L (42-52) % MCV 67 L (80-94) fL MCH 21 L (27-31) pg MCHC 30 L (31-36) g/dl RDW 19 H (10.5-15) % Plt Count 268 (150-450) 10^3/ul MPV 8.2 (7.4-10.4) um3 Neut % (Auto) 70.6 (38-83) % Lymph % (Auto) 18.5 L (25-47) % [place] % (Auto) 7.8 H (0-7) % Eos % (Auto) 2.2 (0-6) % Baso % (Auto) 0.9 (0-2) % Absolute Neuts (auto) 5.3 (1.5-7.7) 10^3/ul Absolute Lymphs (auto) 1.4 (1.0-4.8) 10^3/ul Absolute Monos (auto) 0.6 (0-0.8) 10^3/ul Absolute Eos (auto) 0.2 (0-0.6) 10^3/ul Absolute Basos (auto) 0.1 (0-0.2) 10^3/ul Absolute Nucleated RBC 0 10^3/ul Nucleated RBC % 0.1 INR (Anticoag Therapy) 1.10 H (0.77-1.02) Sodium 136 L (139-145) mmol/L Potassium 4.3 (3.5-5.0) mmol/L Chloride 101 (101-111) mmol/L Carbon Dioxide 27 (22-32) mmol/L Anion Gap 8 (2-11) mmol/L BUN 17 (6-24) mg/dL Creatinine 1.02 (0.67-1.17) mg/dL Est GFR ( Amer) 94.3 (>60) Est GFR (Non-Af Amer) 73.3 (>60) BUN/Creatinine Ratio 16.7 (8-20) Glucose 158 H (70-100) mg/dL Calcium 9.6 (8.6-10.3) mg/dL Total Bilirubin 0.80 (0.2-1.0) mg/dL AST 20 (13-39) U/L ALT 34 (7-52) U/L Alkaline Phosphatase 84 (34-104) U/L Total Protein 7.5 (6.4-8.9) g/dL Albumin 4.2 (3.2-5.2) g/dL Globulin 3.3 (2-4) g/dL Albumin/Globulin Ratio 1.3 (1-3) Blood Type 04/24/18 Range/Units 17:52 WBC (3.5-10.8) 10^3/ul RBC (4.0-5.4) 10^6/ul Hgb (14.0-18.0) g/dl Hct (42-52) % MCV (80-94) fL MCH (27-31) pg MCHC (31-36) g/dl RDW (10.5-15) % Plt Count (150-450) 10^3/ul MPV (7.4-10.4) um3 Neut % (Auto) (38-83) % Lymph % (Auto) (25-47) % [place] % (Auto) (0-7) % Eos % (Auto) (0-6) % Baso % (Auto) (0-2) % Absolute Neuts (auto) (1.5-7.7) 10^3/ul Absolute Lymphs (auto) (1.0-4.8) 10^3/ul Absolute Monos (auto) (0-0.8) 10^3/ul Absolute Eos (auto) (0-0.6) 10^3/ul Absolute Basos (auto) (0-0.2) 10^3/ul Absolute Nucleated RBC 10^3/ul Nucleated RBC % INR (Anticoag Therapy) (0.77-1.02) Sodium (139-145) mmol/L Potassium (3.5-5.0) mmol/L Chloride (101-111) mmol/L Carbon Dioxide (22-32) mmol/L Anion Gap (2-11) mmol/L BUN (6-24) mg/dL Creatinine (0.67-1.17) mg/dL Est GFR ( Amer) (>60) Est GFR (Non-Af Amer) (>60) BUN/Creatinine Ratio (8-20) Glucose (70-100) mg/dL Calcium (8.6-10.3) mg/dL Total Bilirubin (0.2-1.0) mg/dL AST (13-39) U/L ALT (7-52) U/L Alkaline Phosphatase (34-104) U/L Total Protein (6.4-8.9) g/dL Albumin (3.2-5.2) g/dL Globulin (2-4) g/dL Albumin/Globulin Ratio (1-3) Blood Type O Negative Result Diagrams: 04/24/18 17:52 04/24/18 17:52 Lab Statement: Any lab studies that have been ordered have been reviewed, and results considered in the medical decision making process. - Ultrasound No standard instances Ultrasound Interpretation: No Acute Changes - Right groin US IMPRESSION: No evidence of pseudoaneurysm arising from the common femoral artery is noted. Probable resolving hematoma in the right lower abdomen measuring 7.1 x 3.[address] Segundo has reviewed this radiology report. Ultrasound Interpretation Completed By: Radiologist Re-Evaluation - Re-Evaluation First Eval Re-Evaluation Time: 20:32 Comment: I reviewed the lab and imaging results with the pt. He will be discharged home. GIGU Course/Dx - Course Assessment/Plan: Pt is a 67 y/o male who presents with right groin pain s/p recent vascular surgery 1 week ago. Pt reports he had a right femoral artery bypass at the end of November/early December 2017. He notes that he had another surgery to clean out the femoral artery on the left going in from the right groin on 04/17/18. Pt states that as the wire was being pulled out the pt didn't clot and they applied pressure. He then developed a hematoma on the entry site of the right groin. Since then pt has been having right groin pain. Test results shows hemoglobin of 7.2, which has increased from 6.8 on 04/20/18, hematocrit of 24. Right groin Doppler ultrasound shows no evidence of pseudoaneurysm arising from the common femoral artery is noted. Probable resolving hematoma in the right lower abdomen measuring 7.1 x 3.3 x 5.7 cm. Pt declines rectal exam. There is no pseudoaneurysm seen in ultrasound and there is just a resolving hematoma. I discussed the case with Dr. Barbour, vascular surgeon, and since the pt is not actively bleeding, he recommends to discharge the pt home and follow up with him. Pt will be discharged home with follow up from Dr. Barbour and his PCP. I discussed all the findings and test results with the patient. All questions were answered to patient satisfaction. There were no further complaints or concerns. He is instructed to return to the ED for any worsening or new symptoms. Pt is hemodynamically stable, alert and oriented x3. - Diagnoses Provider Diagnoses: Right leg pain, Anemia - Physician Notifications Discussed Care Of Patient With: Dr. Barbour - vascular surgeon at [facility] Discussed With Above Provider: 18:54 Instructed by Provider To: Other - I discussed pt care with Dr. Barbour, vascular surgeon, who recommends an US of the right groin. Discharge - Sign-Out/Discharge Documenting (check all that apply): Discharge/Admit/Transfer - Discharge - Discharge Plan Condition: Stable Disposition: HOME Patient Education Materials: Anemia (ED), Leg Pain (ED) Referrals: Deion Rausch MD [Primary Care Provider] - Additional Instructions: Please follow up with Dr. Barbour and your primary care provider. RETURN TO THE ED FOR ANY NEW OR WORSENING SYMPTOMS. The documentation as recorded by the Adrián caceres Angela accurately reflects the service I personally performed and the decisions made by me, Deion Segundo MD.
== END 2018-04-24 21:15 | disposition home or self-care (01) ==
LOC: ED 16:51
DX: M79.604 Pain in right leg (principal); D64.9 Anemia, unspecified; I10 Essential (primary) hypertension; K21.9 Gastro-esophageal reflux disease without esophagitis; Z95.828 Presence of other vascular implants and grafts; Z79.899 Other long term (current) drug therapy; Z87.442 Personal history of urinary calculi; Z87.891 Personal history of nicotine dependence
CPT/HCPCS: 36415; 80053; 85025; 85610; 86850; 86900; 86901; 99282